=== PATIENT | female | born 1990 ===

== ENCOUNTER 2021-09-16 23:21 | Inpatient (IN) | payer MEDICAID ==
[~2021-09-16] VITALS: Ht 167.6 cm; Wt 79.2 kg
[2021-09-17 11:25] VITALS: BP 114/72
[2021-09-17] MEDS ORDERED: mag hydrox/Alum hydrox/simeth 30ml oral suspension PO PRN (11:30)
[2021-09-17] MEDS ORDERED: acetaminophen 325mg tablet PO PRN (11:30)
[2021-09-17] MEDS ORDERED: loperamide 2mg capsule PO PRN (11:30)
--- NOTE | 2021-09-17 12:37 | NUR ---
ADMIT NOTE Patient is a 30 year old female with a history of Schizoaffective D/O and substance use D/O transferred from [facility] on a 5150 for Grave Disability. Pt arrived on the unit at 1125. Skin and safety check completed and belongings inventoried. Pt cooperative with admission process. 5150 reads While in the ED, Bela has been responding to internal stimuli and has been observed behaving erratically as if she is fighting off an attacker of some kind. She tells this Clinician she will go nowhere and is unable to safety plan. Pt reported using meth on 09/15/21, has been off of psych medications for approximately one month, and has a hx of prior psychiatric hospitalizations.
[2021-09-17] MEDS ORDERED: OLAN5TAB3 PO (16:31)
[2021-09-17] MEDS ORDERED: GABA-534 PO (16:31)
[2021-09-17 19:59] VITALS: BP 106/63
[2021-09-17] MEDS: gabapentin 300mg capsule PO SCH (21:02)
[2021-09-17] MEDS ORDERED: traZODone 50mg tablet PO ONE (21:14)
[2021-09-18] MEDS ORDERED: gabapentin 300mg capsule PO SCH
--- NOTE | 2021-09-18 01:20 | NUR ---
Nursing Progress Note Legal hold: 5150 Client on involuntary status for GD Report received from ALAN Rangel with use of SBAR Why they are here: Patient is a 30 year old female with a history of Schizoaffective D/O and substance use D/O transferred from [facility] on a 5150 for Grave Disability. Pt arrived on the unit at 1125. Skin and safety check completed and belongings inventoried. Pt cooperative with admission process. 5150 reads While in the ED, Bela has been responding to internal stimuli and has been observed behaving erratically as if she is fighting off an attacker of some kind. She tells this Clinician she will go nowhere and is unable to safety plan. Pt reported using meth on 09/15/21, has been off of psych medications for approximately one month, and has a hx of prior psychiatric hospitalizations. Assessment What has happened this shift: Pt isolates to her room most of the shift aside from coming out to get HS snack. She is not seen socializing at all. Pt lays in bed in the dark with her eyes closed. She is cooperative with 1:1 assessment and medication compliant. She denies SI/HI she states she is not currently experiencing any hallucinations, but she used to years ago. She asks for a sleep aid, German called, trazodone 100mg HS ordered and given. S/I, H/I: Denies. A/VH: Denies. Sleep: Will tally at 0500 hours. ADL's: Independent. Group attendance: No group on nights. Were Meds taken: Patient is compliant Any med S/E: None observed or reported. Mental Status Exam Appearance: WNL hair uncombed Eye contact: Good. Behavior: Cooperative Speech: Normal rate, rhythm, and tone. Mood: Anxious, tired Affect: Congruent with mood. Thought process: Linear. Thought Content: Anxious about being able to sleep Cognition: A&O X4. Insight: Fair. Judgment: Fair. Interventions PRN's used: trazodone 100 mg Therapeutic interventions: Provided 1:1 assessment with therapeutic communication and active listening, provided clear and simple instructions, encouraged participation on the unit and independent completion of ADLs, medication administration/education/monitoring, and maintained Q 15 min safety checks. Restraints/seclusion/emergency medication: N/A Justification of Continued Inpatient Treatment: Patient requires medication stabilization and a safe and supportive environment.
[2021-09-18 07:35] VITALS: BP 87/42
[2021-09-18 07:37] VITALS: BP 109/61
[2021-09-18] MEDS: OLANZAPINE 5 MG TABLET PO SCH (07:57)
[2021-09-18] MEDS: gabapentin 300mg capsule PO SCH ×3 (07:57→20:53)
[2021-09-18 08:04] LABS: CHOL/HDL RATIO 2.7 (0.00-4.99); CHOLESTEROL 130 MG/DL (0-200); HDL CHOLESTEROL 48 MG/DL (35-60); LDL CHOLESTEROL 68 MG/DL (50-100); TRIGLYCERIDES 54 MG/DL (20-135)
[2021-09-18 08:06] LABS: HEMOGLOBIN A1C 5.3 % (4.5-6.2)
[2021-09-18] MEDS: magnesium hydroxide 30ml (MOM) UD suspension PO PRN (15:07)
--- NOTE | 2021-09-18 17:32 | NUR ---
Nursing Progress Note Legal hold: 5150 Client on involuntary status for GD Report received from ALAN Shankar with use of SBAR Why they are here: Patient is a 30 year old female with a history of Schizoaffective D/O and substance use D/O transferred from [facility] on a 5150 for Grave Disability. Pt arrived on the unit at 1125. Skin and safety check completed and belongings inventoried. Pt cooperative with admission process. 5150 reads While in the ED, Bela has been responding to internal stimuli and has been observed behaving erratically as if she is fighting off an attacker of some kind. She tells this Clinician she will go nowhere and is unable to safety plan. Pt reported using meth on 09/15/21, has been off of psych medications for approximately one month, and has a hx of prior psychiatric hospitalizations. Assessment What has happened this shift: RN received pt. asleep in bed at start of shift. Pt. awoke for breakfast, pt. took medications and ate breakfast and went back to sleep. 1:1 done in community room. Pt. denies all psych symptoms. When asked why she is here, pt. states, I was experiencing psychosis. Pt. gives minimal information during interview. Pt. states, Im tired and just want to rest. S/I, H/I: Denies. A/VH: Denies. Sleep: Pt. slept 6 hrs on NOC shift and napped most of the day. ADL's: Independent. Group attendance: No Were Meds taken: Yes Any med S/E: Denies. None observed. Mental Status Exam Appearance: Clean and neat, wearing green scrubs. Eye contact: WNL Behavior: Cooperative Speech: WNL Mood: Euthymic Affect: Congruent with mood. Thought process: Linear. Thought Content: Food. Cognition: A&O X4. Insight: Fair. Judgment: Fair. Interventions PRN's used: None Therapeutic interventions: Provided 1:1 assessment with therapeutic communication and active listening, provided clear and simple instructions, encouraged participation on the unit and independent completion of ADLs, medication administration/education/monitoring, and maintained Q 15 min safety checks. Restraints/seclusion/emergency medication: N/A Justification of Continued Inpatient Treatment: Patient requires medication stabilization and a safe and supportive environment.
[2021-09-18 20:00] VITALS: BP 110/64
[2021-09-18] MEDS: LORazepam 1 MG tablet PO PRN (20:53)
--- NOTE | 2021-09-18 21:55 | NUR ---
Nursing Progress Note Legal hold: 5150 Client on involuntary status for GD Report received from ALAN Rangel with use of SBAR Why they are here: Patient is a 30 year old female with a history of Schizoaffective D/O and substance use D/O transferred from [facility] on a 5150 for Grave Disability. Pt arrived on the unit at 1125. Skin and safety check completed and belongings inventoried. Pt cooperative with admission process. 5150 reads While in the ED, Bela has been responding to internal stimuli and has been observed behaving erratically as if she is fighting off an attacker of some kind. She tells this Clinician she will go nowhere and is unable to safety plan. Pt reported using meth on 09/15/21, has been off of psych medications for approximately one month, and has a hx of prior psychiatric hospitalizations. Assessment What has happened this shift: Pt is more visible on the unit this shift, she walks the halls with headphones on smiling. She eats snack and takes HS medication without issue. Pt states the trazodone last night made her feel weird. She does not want to take it tonight, but states Malik had said she could have ativan at HS. Called Malik to clarify, 1 mg ativan PO HS PRN ordered and given with good effect. S/I, H/I: Denies. A/VH: Denies. Sleep: Will tally at 0500 hours. ADL's: Independent. Group attendance: No group on nights. Were Meds taken: Patient is compliant Any med S/E: None observed or reported. Mental Status Exam Appearance: WNL hair uncombed Eye contact: Good. Behavior: Cooperative Speech: Normal rate, rhythm, and tone. Mood: Anxious, tired Affect: Congruent with mood. Thought process: Linear. Thought Content: Anxious about being able to sleep Cognition: A&O X4. Insight: Fair. Judgment: Fair. Interventions PRN's used: ativan 1 mg Therapeutic interventions: Provided 1:1 assessment with therapeutic communication and active listening, provided clear and simple instructions, encouraged participation on the unit and independent completion of ADLs, medication administration/education/monitoring, and maintained Q 15 min safety checks. Restraints/seclusion/emergency medication: N/A Justification of Continued Inpatient Treatment: Patient requires medication stabilization and a safe and supportive environment.
[2021-09-19 07:20] VITALS: BP 96/50
[2021-09-19] MEDS: OLANZAPINE 5 MG TABLET PO SCH (08:44)
[2021-09-19] MEDS: gabapentin 300mg capsule PO SCH ×3 (08:44→20:09)
--- NOTE | 2021-09-19 11:33 | NUR ---
Bela is a 30 y/o female who was placed on 5150 for grave disability. She presented to [facility] and was observed to be disoriented and delusional. She had been responding to internal stimuli and admitted to hearing voices. She was unable to formulate a viable plan for self care. She reported a history of Schizoaffective Disorder and that she had been off her medications for about a month. She also reported recent meth use. Bela was napping upon appeals writer's arrival. She met with in the 's office. She was quite irritable and did not want to answer questions, "I already answered these questions". She reported she was homeless in [place] and has been in [place] for the last 2 weeks. She reported she went to [facility] in [place] for less than a week and now is homeless in [place]. She reported she would like to go to program again. However, she reported she has been to rehabe 9 x's. She reported several psychiatric hospitalizations and that she was diagnosed with Schizoaffective Disorder last year. She reported she does not take her medications outise of the hospital. Discussed an COYLE and she reported she was on Invega in the past and would be willing to take it again. She then refused to answer any more questions and seemed to be getting quite agitated so appeals writer ended the interview. Tres Yancey, Substance Use Navigator, meet with Bela to discuss rehab. DESTINI Arguelles Addendum: 09/19/21 at 1135 by Deysi Brooks SS Amended: Links added.
[2021-09-19] MEDS: acetaminophen 325mg tablet PO PRN (17:13)
--- NOTE | 2021-09-19 17:57 | NUR ---
Nursing Progress Note: Bela Legal hold: 5150 Client on involuntary status for GD Report received from ALAN Shankar with use of SBAR Why they are here: Patient is a 30 year old female with a history of Schizoaffective D/O and substance use D/O transferred from [facility] on a 5150 for Grave Disability. Pt arrived on the unit at 1125. Skin and safety check completed and belongings inventoried. Pt cooperative with admission process. 5150 reads While in the ED, Bela has been responding to internal stimuli and has been observed behaving erratically as if she is fighting off an attacker of some kind. She tells this Clinician she will go nowhere and is unable to safety plan. Pt reported using meth on 09/15/21, has been off of psych medications for approximately one month, and has a hx of prior psychiatric hospitalizations. Assessment What has happened this shift: Patient received walking around the unit at change of shift. She presents as polite, pleasant, and social with peers. Patient joined in the community room with peers for breakfast. She was receptive to scheduled medication and 1:1 assessment. She retreated back to her room after breakfast, observed sleeping in bed. Patient endorsed that she is very tired and trying to catch up on sleep. She denies SI/HI, AH or VH. Does not appear to be responding to internal stimuli. Patient endorsed to this scientific writer that she was brought in for psychosis and has no recollect of events leading up to her hospitalization. Patient endorsing that her schizophrenia made her think she was being attacked. She was observed napping in her room the majority of the day. Patient observed sitting in her room listening to music through headphones later in the shift. She is friendly and pleasant upon interaction. Patient endorsed that she has been homeless for two years and has nowhere safe to go. Patient endorsed that she is often times scared for her life while living on the streets. Patient c/o bilateral foot pain later in the shift and was given PRN Tylenol. She joined for all meals and snacks in the group room with peers. S/I, H/I: Denies. A/VH: Denies. Sleep: Pt. napped most of the day. ADL's: Independent. Group attendance: No Were Meds taken: Yes Any med S/E: Denies. None observed. Mental Status Exam Appearance: Patient showered on this shift. She is clean and neat, wearing green scrubs. Eye contact: Good, WNL Behavior: Cooperative Speech: Clear, WNL Mood: Euthymic Affect: Congruent with mood. Thought process: Linear. Thought Content: Patient sleeping most of the day. Meeting needs. Cognition: A&O X4. Insight: Fair. Judgment: Fair. Interventions PRN's used: Tylenol Therapeutic interventions: Established rapport, provided 1:1 assessment with therapeutic communication and active listening, provided clear and simple instructions, encouraged participation on the unit and independent completion of ADLs, medication administration/education/monitoring, and maintained Q 15 min safety checks. Restraints/seclusion/emergency medication: N/A Justification of Continued Inpatient Treatment: Patient requires medication stabilization and a safe and supportive environment.
[2021-09-19 20:03] VITALS: BP 98/48
[2021-09-19] MEDS: LORazepam 1 MG tablet PO PRN (20:09)
--- NOTE | 2021-09-19 22:17 | NUR ---
Nursing Progress Note Legal hold: 5150 Client on involuntary status for GD Report received from ALAN Barber with use of SBAR Why they are here: Patient is a 30 year old female with a history of Schizoaffective D/O and substance use D/O transferred from [facility] on a 5150 for Grave Disability. Pt arrived on the unit at 1125. Skin and safety check completed and belongings inventoried. Pt cooperative with admission process. 5150 reads While in the ED, Bela has been responding to internal stimuli and has been observed behaving erratically as if she is fighting off an attacker of some kind. She tells this Clinician she will go nowhere and is unable to safety plan. Pt reported using meth on 09/15/21, has been off of psych medications for approximately one month, and has a hx of prior psychiatric hospitalizations. Assessment What has happened this shift: Pt is seen walking on the unit, calm affect, smiles at staff members and waves. She is medication compliant and utilizes PRN Ativan 1 mg. She states she is feeling a little restless and blank. I kind of feel like in a shell right now. She does say that she is feeling better than when she first got here, and is glad to be getting medication and rest. She feels hungry at HS snack and has a juice, a milk, and crackers. A T shirt from the clothing closet was given to her because she states the green scrub tops are uncomfortable and not stretchy. S/I, H/I: Denies. A/VH: Denies. Sleep: Will tally at 0500 hours. ADL's: Independent. Group attendance: No group on nights. Were Meds taken: Patient is compliant Any med S/E: None observed or reported. Mental Status Exam Appearance: WNL hair uncombed Eye contact: Good. Behavior: Cooperative Speech: Normal rate, rhythm, and tone. Mood: Anxious, tired Affect: Congruent with mood. Thought process: Linear. Thought Content: Anxious about being able to sleep Cognition: A&O X4. Insight: Fair. Judgment: Fair. Interventions PRN's used: ativan 1 mg Therapeutic interventions: Provided 1:1 assessment with therapeutic communication and active listening, provided clear and simple instructions, encouraged participation on the unit and independent completion of ADLs, medication administration/education/monitoring, and maintained Q 15 min safety checks. Restraints/seclusion/emergency medication: N/A Justification of Continued Inpatient Treatment: Patient requires medication stabilization and a safe and supportive environment.
[2021-09-20 07:55] VITALS: BP 104/60
[2021-09-20] MEDS: gabapentin 300mg capsule PO SCH ×3 (08:19→20:06)
[2021-09-20] MEDS: OLANZAPINE 5 MG TABLET PO SCH (08:19)
--- NOTE | 2021-09-20 09:23 | NUR ---
Met with patient for substance use and to see if patient wanted resources for treatment options. Patient would like to go to treatment. I gave patient [facility] number to start process and I will follow up with her.
[2021-09-20] MEDS: LORazepam 1 MG tablet PO PRN (12:55)
--- NOTE | 2021-09-20 13:00 | NUR ---
Patient given PRN HS Ativan 1mg PO early at 1255 due to complaints of anxiety/ restlessness. Dr. Garsia notified with no new orders at this time.
--- NOTE | 2021-09-20 16:52 | NUR ---
Nursing Progress Note: Bela Legal hold: Voluntary Client on voluntary status for GD Report received from Anabella Jain RN with use of SBAR Why they are here: Patient is a 30 year old female with a history of Schizoaffective D/O and substance use D/O transferred from [facility] on a 5150 for Grave Disability. Pt arrived on the unit at 1125. Skin and safety check completed and belongings inventoried. Pt cooperative with admission process. 5150 reads While in the ED, Bela has been responding to internal stimuli and has been observed behaving erratically as if she is fighting off an attacker of some kind. She tells this Clinician she will go nowhere and is unable to safety plan. Pt reported using meth on 09/15/21, has been off of psych medications for approximately one month, and has a hx of prior psychiatric hospitalizations. Assessment What has happened this shift: Patient received sleeping in her room at change of shift. She was awoken to join for breakfast in the group room. Patient was receptive to scheduled medication and 1:1 assessment. She continues to present as pleasant, social, and cooperative with care. She was observed sleeping in her room for the majority of the morning. Patients 5150 hold this morning and she was placed on a voluntary hold while we continue to look for placement. Patient endorsed that she is anxious about staying in the hospital longer but doesnt have anywhere else to go. Patient noted endorsing feelings of anxiety and was given PRN Ativan at 1255. She denies SI/HI, AH or VH. Does not appear to be responding to internal stimuli. Patient was observed sitting in her room listening to music through headphones throughout the day. She was noted to be more active today, yet reserved and self-isolative to her room. She is friendly and pleasant upon interaction. Patient joined for all meals and snacks in the group room with peers. S/I, H/I: Denies. A/VH: Denies. Does not appear to be responding to IS. Sleep: Patient observed napping for approximately two hours on this shift. ADL's: Independent. Group attendance: No Were Meds taken: Yes Any med S/E: Denies. None observed. Mental Status Exam Appearance: Clean and neat, wearing green scrubs. Eye contact: Good, WNL Behavior: Cooperative Speech: Normal rate, rhythm, tone Mood: Euthymic, slightly anxious Affect: Congruent with mood. Thought process: Linear. Thought Content: Anxious about staying at the hospital. Meeting basic needs. Cognition: A&O X4. Insight: Fair. Judgment: Fair. Interventions PRN's used: Ativan 1mg PO Therapeutic interventions: Established rapport, provided 1:1 assessment with therapeutic communication and active listening, provided clear and simple instructions, encouraged participation on the unit and independent completion of ADLs, medication administration/education/monitoring, and maintained Q 15 min safety checks. Restraints/seclusion/emergency medication: N/A Justification of Continued Inpatient Treatment: Patient requires medication stabilization and a safe and supportive environment.
[2021-09-20] MEDS ORDERED: LORazepam 1 MG tablet PO ONE (19:55)
[2021-09-20 20:20] VITALS: BP 123/72
[2021-09-20] MEDS: traZODone 50mg tablet PO PRN (20:51)
--- NOTE | 2021-09-20 22:55 | NUR ---
Nursing Progress Note Legal hold: VOL Client on involuntary status for GD Report received from Sunil PHILLIPS with use of SBAR Why they are here: Patient is a 30 year old female with a history of Schizoaffective D/O and substance use D/O transferred from [facility] on a 5150 for Grave Disability. Pt arrived on the unit at 1125. Skin and safety check completed and belongings inventoried. Pt cooperative with admission process. 5150 reads While in the ED, Bela has been responding to internal stimuli and has been observed behaving erratically as if she is fighting off an attacker of some kind. She tells this Clinician she will go nowhere and is unable to safety plan. Pt reported using meth on 09/15/21, has been off of psych medications for approximately one month, and has a hx of prior psychiatric hospitalizations. Assessment What has happened this shift: Pt given PRN tylenol for 7/10 sore feet. She states they always hurt her just from being on the streets and walking everywhere. Pt states she had a lot of trouble sleeping the night before. Pt requests she take trazodone to try to sleep better. trazodone 100mg PRN given with good effect. S/I, H/I: Denies. A/VH: Denies. Sleep: Will tally at 0500 hours. ADL's: Independent. Group attendance: No group on nights. Were Meds taken: Patient is compliant Any med S/E: None observed or reported. Mental Status Exam Appearance: WNL hair uncombed Eye contact: Good. Behavior: Cooperative Speech: Normal rate, rhythm, and tone. Mood: Anxious, tired Affect: Congruent with mood. Thought process: Linear. Thought Content: Anxious about being able to sleep Cognition: A&O X4. Insight: Fair. Judgment: Fair. Interventions PRN's used: trazodone 100 mg Therapeutic interventions: Provided 1:1 assessment with therapeutic communication and active listening, provided clear and simple instructions, encouraged participation on the unit and independent completion of ADLs, medication administration/education/monitoring, and maintained Q 15 min safety checks. Restraints/seclusion/emergency medication: N/A Justification of Continued Inpatient Treatment: Patient requires medication stabilization and a safe and supportive environment.
[2021-09-21] MEDS: OLANZAPINE 5 MG TABLET PO SCH (08:23)
[2021-09-21] MEDS: gabapentin 300mg capsule PO SCH ×3 (08:23→20:34)
[2021-09-21 08:31] VITALS: BP 105/54
--- NOTE | 2021-09-21 13:25 | NUR ---
Initial: Pt admit for psychosis. Currently on a regular diet and receiving double protein TIDWM per diet order, documented with 100% PO intake exceeding estimated nutrient needs. LBM 09/18, received first admin of PRN MoM 09/18. No GI symptoms per EMR. No nutrition intervention implemented at this time. Will continue to follow. Recommendations: 1) Continue regular diet 2) Double eggs WB, double meat BIDLD per EMR 3) Routine bowel care 4) Weekly scaled weights Addendum: 09/21/21 at [address] Amended: Links added.
[2021-09-21] MEDS: magnesium hydroxide 30ml (MOM) UD suspension PO PRN (14:16)
--- NOTE | 2021-09-21 17:07 | NUR ---
Nursing Progress Note: Bela Legal hold: Voluntary Client on voluntary status for GD Report received from Anabella Jain RN with use of SBAR Why they are here: Patient is a 30 year old female with a history of Schizoaffective D/O and substance use D/O transferred from [facility] on a 5150 for Grave Disability. Pt arrived on the unit at 1125. Skin and safety check completed and belongings inventoried. Pt cooperative with admission process. 5150 reads While in the ED, Bela has been responding to internal stimuli and has been observed behaving erratically as if she is fighting off an attacker of some kind. She tells this Clinician she will go nowhere and is unable to safety plan. Pt reported using meth on 09/15/21, has been off of psych medications for approximately one month, and has a hx of prior psychiatric hospitalizations. Assessment What has happened this shift: Patient was asleep at change of shift and up for breakfast. Patient was watching T.V. in the Rec room with peers, walking up and down the hallway listening to music. In the afternoon patient was chatting with another patient and walking the halls together. Nothing inappropriate observed. RN 1:1, patient denies suicidal/homicidal ideation. Patient denies responding to internal stimuli. Patient denies depression. Patient is concerned about where she will go after this hospitalization. Patient does appear to be in any distress. S/I, H/I: Denies. A/VH: Denies. Does not appear to be responding to IS. Sleep: Patient took several naps this shift ADL's: Independent. Group attendance: No Were Meds taken: Yes Any med S/E: Denies. None observed. Mental Status Exam Appearance: Clean and neat, wearing shorts, tank top and sweater. Eye contact: Good, WNL Behavior: Cooperative Speech: Normal rate, rhythm, tone Mood: Euthymic Affect: Congruent with mood. Thought process: Linear. Thought Content: Patient does not know where she is going to go after hospitalization. Cognition: A&O X4. Insight: Fair. Judgment: Fair. Interventions PRN's used: None Therapeutic interventions: Established rapport, provided 1:1 assessment with therapeutic communication and active listening, provided clear and simple instructions, encouraged participation on the unit and independent completion of ADLs, medication administration/education/monitoring, and maintained Q 15 min safety checks. Restraints/seclusion/emergency medication: N/A Justification of Continued Inpatient Treatment: Patient requires medication stabilization and a safe and supportive environment.
[2021-09-21] MEDS: acetaminophen 325mg tablet PO PRN (18:08)
[2021-09-21 19:00] VITALS: BP 112/82
--- NOTE | 2021-09-21 19:05 | NUR ---
RC'D REPORT AND ASSUMED CARE.
[2021-09-21] MEDS: traZODone 50mg tablet PO PRN (20:34)
[2021-09-21] MEDS: LORazepam 1 MG tablet PO PRN (20:34)
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
[2021-09-22 07:39] VITALS: BP 99/50
[2021-09-22] MEDS: OLANZAPINE 5 MG TABLET PO SCH (08:04)
[2021-09-22] MEDS: gabapentin 300mg capsule PO SCH ×3 (08:04→20:09)
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
--- NOTE | 2021-09-22 18:43 | NUR ---
Nursing Progress Note: Bela Legal hold: Voluntary Client on voluntary status for GD Report received from Sunil PHILLIPS with use of SBAR
[2021-09-22 19:00] VITALS: BP 117/69
[2021-09-22] MEDS: acetaminophen 325mg tablet PO PRN (19:25)
[2021-09-22] MEDS: LORazepam 1 MG tablet PO PRN (20:09)
[2021-09-22] MEDS: traZODone 50mg tablet PO PRN (20:09)
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
[2021-09-23] MEDS: acetaminophen 325mg tablet PO PRN (07:41)
[2021-09-23] MEDS: OLANZAPINE 5 MG TABLET PO SCH (07:41)
[2021-09-23] MEDS: gabapentin 300mg capsule PO SCH ×2 (07:41→12:27)
[2021-09-23 08:00] VITALS: BP 117/66
[2021-09-23] MEDS ORDERED: TRAZ-251 PO (09:40)
[2021-09-23] MEDS ORDERED: OLAN5TAB3 PO (09:40)
[2021-09-23] MEDS ORDERED: gabapentin capsule PO (09:40)
--- NOTE | 2021-09-23 09:41 | NUR ---
Met with patient to see what happened after her calling [facility] for inpatient treatment. Patient has [facility] and [facility] told her that she has to go to a program in [place] area. Patient has a plan to go and stay with a friend instead of going to treatment.
--- NOTE | 2021-09-23 11:43 | NUR ---
DISCHARGE PLAN [facility] bus ticket was approved by Donnie and was purchased through accounting. Bus to [place] boards at 5 PM. She will need a cab ride to the bus station around 4:30. Bela reported she is planning on staying with a friend in [place]. Provided her with information on follow up care. DESTINI Arguelles
--- NOTE | 2021-09-23 17:31 | NUR ---
Patient discharged and escorted from unit at approximately 1620. Discharge instructions reviewed and verbalized understanding. Patients belongings inventoried and returned to her. Patient is A&O x4, calm and cooperative. Patient is ambulatory with a steady gait. No s/s of distress. Patient provided with transportation to the [employer] bus station. Ticket: boards at 5 PM today (09/23/21), transport to [facility]. She was escorted out by staff and left the hospital without incident.
== END 2021-09-23 17:00 | disposition home or self-care (01) | DRG 751 ==
LOC: ADULT MH 09-17 11:25
PROVIDERS: ADMIT Psychiatry & Neurology Psychiatry; ATTEND Psychiatry & Neurology Psychiatry
DX: F29 Unspecified psychosis not due to a substance or known physiological condition (principal); F25.9 Schizoaffective disorder, unspecified; F32.A Depression, unspecified; F15.10 Other stimulant abuse, uncomplicated; F43.10 Post-traumatic stress disorder, unspecified; I25.2 Old myocardial infarction; Z59.00 Homelessness unspecified; Z79.899 Other long term (current) drug therapy
CPT/HCPCS: 36415; 80061; 83036; 87081